=== PATIENT | male | born 1955 | race Caucasian/White ===

== ENCOUNTER 2018-03-05 08:00 | Outpatient (CLI) | payer BC ==
--- NOTE | 2018-03-05 11:48 | ULT ---
THYROID ULTRASOUND: Indication: Thyroid nodule found on CT evaluation. FINDINGS: The thyroid isthmus measures 0.55 cm. The right thyroid lobe measures 4.4 x 1.7 x 2.1 cm. The left th yroid lobe measures 4.1 x 1.1 x 3.2 cm. There is a 1.6 x 1.2 x 1.1 cm well circumscribed solid hyperechoic to isoechoic nodule within the mid pole of the left thyroid gland. This is consistent with a TIRADS 3 lesion. There are numerous additional subcentimeter hypoechoic nodules seen within both thyroid lobes. One of the largest within the right thyroid gland measures 4 mm within the mid inferior pole. There is a 4 mm hypoechoic nodule within the right medial aspect of the thyroid isthmus. Small scattered hypoechoi c nodules within both the right thyroid gland, left thyroid gland and thyroid isthmus require no lbayne tional followup. IMPRESSION: 1. Multinodular goiter. 2. TIRADS 3 lesion within the mid to lower pole left thyroid gland. Follow up examination in one year is recommended. POS: SHA
== END 2018-03-05 08:01 | disposition home or self-care (01) ==
LOC: NAV ULT 08:00
PROVIDERS: ATTEND Specialist
DX: E04.1 Nontoxic single thyroid nodule (principal); E04.2 Nontoxic multinodular goiter
CPT/HCPCS: 76536

== ENCOUNTER 2021-01-04 09:44 | Outpatient (CLI) | payer MEDICARE, OTHER | END 2021-01-04 09:45 | disposition home or self-care (01) | LOC: NAV RAD 09:44 | PROVIDERS: ATTEND Family Medicine | DX: S93.402A Sprain of unspecified ligament of left ankle, initial encounter (principal); M54.5 Low back pain; M47.816 Spondylosis without myelopathy or radiculopathy, lumbar region | CPT/HCPCS: 72100; 72202 ==